=== PATIENT | male | born 1945 | race Caucasian/White ===

== ENCOUNTER 2023-04-11 19:42 | Inpatient (IN) | payer OTHER, BC ==
[2023-04-11 20:45] LABS: HEMATOCRIT 47.4 % (35.4-49); HEMOGLOBIN 16.1 G/dL (11.7-16.9); MCH 30.8 pg (25.7-33.7); MEAN CELL VOLUME 90.8 fl (80-96); MEAN PLT VOLUME 7.7 fl (7.5-11.1); PLATELET COUNT 163.4 10^3/uL (134-434); RBC 5.22 10^6/uL (4.00-5.60); RDW 14.2 % (11.9-15.9); WHITE BLOOD COUNT 8.3 10^3/uL (4.0-10.8)
[2023-04-11 20:49] LABS: INR 1.72 (0.83-1.09); PROTHROMBIN TIME (PATIENT) 19.8 SEC (9.7-13.0)
[2023-04-11 21:02] LABS: ALBUMIN 4.2 g/dl (3.4-5.0); BILIRUBIN,TOTAL 1.3 mg/dl (0.2-1); CALCIUM 9.5 mg/dl (8.5-10.1); CREATININE 1.2 mg/dl (0.6-1.3); MAGNESIUM 2.1 mg/dL (1.8-2.4); PHOSPHOROUS 3.9 (2.5-4.9); TOT PROT 6.9 g/dl (6.4-8.2)
[2023-04-11] MEDS ORDERED: ACETAMINOPHEN 325 MG TABLET (FP) ONE (21:02)
[2023-04-11] MEDS: ACETAMINOPHEN 325 MG TABLET (FP) PO ONE (21:08)
[2023-04-11 21:14] LABS: EPITHELIAL CELLS 0-5 /hpf
[2023-04-11 23:57] VITALS: BMI 14.2
[2023-04-12 08:53] LABS: CALCIUM 8.8 mg/dl (8.5-10.1); CREATININE 1.1 mg/dl (0.6-1.3); POTASSIUM 3.6 mmol/L (3.5-5.1)
[2023-04-12] MEDS: HYDROCHLOROTHIAZIDE 12.5 MG CAPSULE (FP) PO SCH (09:59)
[2023-04-12] MEDS: LOSARTAN POTASSIUM 25 MG TABLET PO SCH (09:59)
[2023-04-12] MEDS: APIXABAN 5 MG TABLET PO SCH (09:59)
[2023-04-12 11:03] LABS: BASO % 0.7 % (0-2.0); EOS % 7.3 % (0-4.5); HEMATOCRIT 37.9 % (35.4-49); HEMOGLOBIN 13.3 GM/dL (11.7-16.9); MEAN CELL VOLUME 88.6 fl (80-96); MEAN PLT VOLUME 7.7 fl (7.5-11.1); MONO % 14.9 % (3.8-10.2); NEUT % 56.1 % (42.8-82.8); PLATELET COUNT 153 10^3/uL (134-434); RBC 4.27 M/mm3 (4.00-5.60); RDW 13.6 % (11.9-15.9); WHITE BLOOD COUNT 6.1 K/mm3 (4.0-10.0)
[2023-04-12 14:54] LABS: METHADONE, UR NEGATIVE (NEGATIVE); OPIATES, URI NEGATIVE (NEGATIVE); PHENCYCLIDINE,URINE NEGATIVE (NEGATIVE)
[2023-04-12 14:58] LABS: COCAINE, UR NEGATIVE (NEGATIVE); URINE AMPHETAMINES NEGATIVE (NEGATIVE); URINE BARBITURATES NEGATIVE (NEGATIVE); URINE BENZODIAZEPINES NEGATIVE (NEGATIVE)
[2023-04-12] MEDS: ATORVASTATIN CA 10 MG TABLET (FP) PO SCH (21:15)
[2023-04-13 12:29] VITALS: RESP 18
[2023-04-14 06:13] VITALS: PULSE 88
[2023-04-14 11:21] VITALS: BP 124/71; TEMP 98.2
== END 2023-04-14 19:30 | disposition home or self-care (01) | DRG 69 ==
LOC: FER 19:42 → FM/S 22:31 → OBSVTOIN 04-14 11:17
PROVIDERS: ADMIT Internal Medicine; ATTEND Family Medicine
DX: G45.9 Transient cerebral ischemic attack, unspecified (principal); H40.9 Unspecified glaucoma; R26.81 Unsteadiness on feet; I10 Essential (primary) hypertension; I48.0 Paroxysmal atrial fibrillation; R29.6 Repeated falls
CPT/HCPCS: 36415; 70450-TC; 70551-TC; 71045-TC-FY; 80048; 80053; 80061; 80307; 81003; 81015; 82550; 82607; 83036; 83735; 84100; 84443; 84484; 85025; 85027; 85610; 86618; 86780; 93005; 93880-TC; 97116-GP; 97161-GP; 99285-25; G0378